=== PATIENT | female | born 1950 | race Caucasian/White ===

== ENCOUNTER → 2017-03-10 | Outpatient (CLI) | payer BC ==
[~2017-03-10] MED LIST: AMOX1TAB62 PO; ANAS1TAB PO; HYDR-3307 PO; ONDA8TAB9 PO; PROC10TA
== END | disposition home or self-care (01) ==
LOC: PETCFH 08:31
PROVIDERS: ATTEND Specialist
DX: M50.30 Other cervical disc degeneration, unspecified cervical region (principal); C50.919 Malignant neoplasm of unspecified site of unspecified female breast
CPT/HCPCS: 78306; A9503

== ENCOUNTER → 2017-03-10 | Outpatient (CLI) | payer BC | END | disposition home or self-care (01) | LOC: CFH 08:42 | PROVIDERS: ATTEND Specialist | DX: Z12.31 Encounter for screening mammogram for malignant neoplasm of breast (principal); C50.919 Malignant neoplasm of unspecified site of unspecified female breast; M41.84 Other forms of scoliosis, thoracic region | CPT/HCPCS: 71020; G0202 ==

== ENCOUNTER → 2018-03-12 | Outpatient (CLI) | payer BC ==
[~2018-03-12] MED LIST changes: -PROC10TA; +PROC10TA2
== END | disposition home or self-care (01) ==
LOC: CFH 10:11
PROVIDERS: ATTEND Family Medicine
DX: Z12.31 Encounter for screening mammogram for malignant neoplasm of breast (principal); Z85.3 Personal history of malignant neoplasm of breast
CPT/HCPCS: 77067

== ENCOUNTER → 2018-03-26 | Outpatient (CLI) | payer BC | END | disposition home or self-care (01) | LOC: CFH 12:57 → EDSTATUS 13:15 | PROVIDERS: ATTEND Specialist | DX: R94.5 Abnormal results of liver function studies (principal) | CPT/HCPCS: 76700 ==

== ENCOUNTER 2018-09-24 15:29 | Emergency (ER) | payer BC ==
[~2018-09-24] VITALS: Ht 144.8 cm; Wt 44.1 kg
[2018-09-24 15:50] VITALS: BP 114/84
== END 2018-09-24 17:14 | disposition home or self-care (01) ==
LOC: ED 17:08
DX: M25.571 Pain in right ankle and joints of right foot (principal); Z85.3 Personal history of malignant neoplasm of breast; X50.1XXA Overexertion from prolonged static or awkward postures, initial encounter; Y93.89 Activity, other specified; Y92.89 Other specified places as the place of occurrence of the external cause; Y99.8 Other external cause status
CPT/HCPCS: 99283

== ENCOUNTER 2018-10-15 16:45 | Emergency (ER) | payer BC ==
[~2018-10-15] VITALS: Ht 144.8 cm; Wt 41.2 kg
--- NOTE | 2018-10-15 17:04 | NUR ---
68 Y/O FEMALE PRESENTS TO ED WITH C/O DIZZINESS. PER PT "I'VE HAD N/V FOR ABOUT 8 MONTHS. I'VE BEEN DIZZY AND LIGHT HEADED FOR ABOUT 2-4 WEEKS. I'VE ALSO LOST MY APPETITE. I FEEL MOSTLY UNSTEADY. I FEEL LIKE MY EAR CANAL IS NARROWING.IT FEELS LIKE THERE IS FAN'S ON. LIKE A HUMMING SOUND." NO C/O D, TRAUMA, SYNCOPE, CP, SOB. NO C/O NUMBNESS AND TINGLING.
[2018-10-15 17:12] LABS: MEAN CORPUSCULAR HEMOGLOBIN 38.4 pg (27.0-34.8); MEAN CORPUSCULAR HGB CONC 32.8 g/dL (32.4-35.8); MEAN CORPUSCULAR VOLUME 117.2 fL (80-100); MEAN PLATELET VOLUME 6.1 fL (7.4-10.4); PLATELET COUNT 267 x10^3/uL (130-400); RED BLOOD COUNT 4.29 x10^6/uL (3.82-5.3); RED CELL DISTRIBUTION WIDTH 14.4 % (9.6-15.2)
[2018-10-15 17:21] LABS: ALANINE AMINOTRANSFERASE 54 U/L (12-78); ALBUMIN 3.9 g/dL (3.4-5.0); ANION GAP 12 mmol/L (5-15); CALCIUM 9.5 mg/dL (8.5-10.1); CHLORIDE 95 mmol/L (98-107)
[2018-10-15] MEDS ORDERED: MECLIZINE CHEWABLE 25 MG TAB ONE (17:24)
[2018-10-15] MEDS ORDERED: ONDANSETRON ODT 4 MG ONE (17:24)
[2018-10-15 17:26] LABS: ALKALINE PHOSPHATASE 84 U/L (45-117); BILIRUBIN,TOTAL 1.3 mg/dL (0.2-1.0); TOTAL PROTEIN 7.5 g/dL (6.4-8.2); TROPONIN I < 0.015 ng/mL (0.000-0.045)
[2018-10-15] MEDS ORDERED: ONDANSETRON ODT 4 MG PO ONE (17:30)
[2018-10-15] MEDS ORDERED: MECLIZINE CHEWABLE 25 MG TAB PO ONE (17:30)
--- NOTE | 2018-10-15 17:36 | NUR ---
PT BACK FROM IMAGING
[2018-10-15 17:40] LABS: BASOPHILS # (AUTO) 0.05 x10^3/uL (0-0.1); BASOPHILS % (AUTO) 1 % (0-1); EOSINOPHILS # (AUTO) 0.07 x10^3/uL (0-0.4); EOSINOPHILS % (AUTO) 1 % (1-7); LYMPHOCYTES # (AUTO) 1.84 x10^3/uL (1-3.4); LYMPHOCYTES % (AUTO) 18 % (22-44); MD SCAN; MONOCYTES # (AUTO) 0.72 x10^3/uL (0.2-0.8); MONOCYTES % (AUTO) 7 % (2-9); NEUTROPHILS # (AUTO) 7.78 x10^3/uL (1.8-6.8); NEUTROPHILS % (AUTO) 74 % (42-75)
[2018-10-15 18:30] VITALS: BP 120/93
--- NOTE | 2018-10-15 18:31 | NUR ---
PATIENT AMBULATED TO RESTROOM AND REPORTED THAT SHE HAS IMPROVED DIZZINESS SYMPTOMS . [facility] COLLECTED AND WALKED TO LAB
[2018-10-15 18:35] LABS: CULTURE INDICATED? YES; MICROSCOPIC INDICATED
--- NOTE | 2018-10-15 18:58 | NUR ---
MD IN WITH PATIENT FOR PLAN OF CARE
== END 2018-10-15 19:28 | disposition home or self-care (01) ==
LOC: ED 19:10
DX: H81.399 Other peripheral vertigo, unspecified ear (principal); H81.10 Benign paroxysmal vertigo, unspecified ear; R11.2 Nausea with vomiting, unspecified; Z85.3 Personal history of malignant neoplasm of breast
CPT/HCPCS: 36415; 70450; 71045; 80053; 81001; 84484; 85025; 87086; 93005; 99284; Q0162

== ENCOUNTER 2018-10-16 11:17 | Emergency (ER) | payer BC ==
[~2018-10-16] VITALS: Ht 144.8 cm; Wt 40.9 kg
[2018-10-16] MEDS ORDERED: SODIUM CHLORIDE FLUSH 10ML SYR IVF ONE (12:00)
[2018-10-16 12:15] LABS: ALANINE AMINOTRANSFERASE 47 U/L (12-78); ALBUMIN 3.4 g/dL (3.4-5.0); ANION GAP 15 mmol/L (5-15); CALCIUM 9.3 mg/dL (8.5-10.1); CHLORIDE 98 mmol/L (98-107); CREATININE 0.82 mg/dL (0.55-1.02)
[2018-10-16 12:17] LABS: ALKALINE PHOSPHATASE 71 U/L (45-117); BILIRUBIN,TOTAL 1.5 mg/dL (0.2-1.0); TOTAL PROTEIN 6.3 g/dL (6.4-8.2)
--- NOTE | 2018-10-16 12:29 | NUR ---
Pt transported on rmidnight to imaging.
[2018-10-16 13:43] LABS: MEAN CORPUSCULAR HEMOGLOBIN 38.7 pg (27.0-34.8); MEAN CORPUSCULAR HGB CONC 33.1 g/dL (32.4-35.8); MEAN CORPUSCULAR VOLUME 116.8 fL (80-100); MEAN PLATELET VOLUME 6.6 fL (7.4-10.4); PLATELET COUNT 167 x10^3/uL (130-400); RED BLOOD COUNT 3.83 x10^6/uL (3.82-5.3); RED CELL DISTRIBUTION WIDTH 14.5 % (9.6-15.2)
[2018-10-16 13:44] LABS: BASOPHILS # (AUTO) 0.02 x10^3/uL (0-0.1); BASOPHILS % (AUTO) 0 % (0-1); EOSINOPHILS # (AUTO) 0.04 x10^3/uL (0-0.4); EOSINOPHILS % (AUTO) 0 % (1-7); LYMPHOCYTES # (AUTO) 1.12 x10^3/uL (1-3.4); LYMPHOCYTES % (AUTO) 14 % (22-44); MD SCAN; MONOCYTES # (AUTO) 0.79 x10^3/uL (0.2-0.8); MONOCYTES % (AUTO) 10 % (2-9); NEUTROPHILS # (AUTO) 6.26 x10^3/uL (1.8-6.8); NEUTROPHILS % (AUTO) 76 % (42-75)
[2018-10-16 14:08] VITALS: BP 124/86
--- NOTE | 2018-10-16 14:25 | NUR ---
Patient given discharge instructions and they have confirmed that they understand the instructions. Patient ambulatory with steady gait. Pt left with d/c paperwork and all personal belongings.
== END 2018-10-16 14:27 | disposition home or self-care (01) ==
LOC: ED 14:11
DX: R55 Syncope and collapse (principal)
CPT/HCPCS: 36415; 70551; 80053; 85025; 93005; 99284

== ENCOUNTER 2018-10-25 15:02 | Inpatient (IN) | payer BC ==
[~2018-10-25] VITALS: Ht 144.8 cm; Wt 42.9 kg
--- NOTE | 2018-10-25 15:14 | NUR ---
PT WITHOUT PHYSICAL COMPLAINT. PT ASKING FOR NO VISITORS AT THIS TIME. NOTE PLACED REGARDING SUCH IN CHART. WARM BLANKET PROVIDED, CALL LIGHT WITHIN REACH. VSS, PT A/OX3.
--- NOTE | 2018-10-25 15:38 | NUR ---
URINE COLLECTED, LABS DRAWN/SENT TO LAB. PT AMBULATORY WITH SBA TO BR. SLIGHTLY UNSTEADY GAIT, PT DENIES DIZZINESS AT THIS TIME. R FOOT BRUISING, SLIGHT SWELLING.
[2018-10-25 15:55] LABS: MEAN CORPUSCULAR HGB CONC 32.2 g/dL (32.4-35.8); MEAN CORPUSCULAR VOLUME 114.9 fL (80-100); MEAN PLATELET VOLUME 6.4 fL (7.4-10.4); PLATELET COUNT 283 x10^3/uL (130-400); RED BLOOD COUNT 3.93 x10^6/uL (3.82-5.3); RED CELL DISTRIBUTION WIDTH 14.6 % (9.6-15.2)
--- NOTE | 2018-10-25 16:00 | NUR ---
PT STATING OKAY FOR DTR TO COME BACK TO ROOM.
[2018-10-25 16:04] LABS: MICROSCOPIC INDICATED
[2018-10-25 16:05] LABS: ALBUMIN 3.6 g/dL (3.4-5.0); ANION GAP 10 mmol/L (5-15); CALCIUM 8.9 mg/dL (8.5-10.1); CHLORIDE 102 mmol/L (98-107)
[2018-10-25 16:05] LABS: CULTURE INDICATED? YES
[2018-10-25 16:09] LABS: ALANINE AMINOTRANSFERASE 33 U/L (12-78); ALKALINE PHOSPHATASE 82 U/L (45-117); BASOPHILS # (AUTO) 0.04 x10^3/uL (0-0.1); BASOPHILS % (AUTO) 0 % (0-1); BILIRUBIN,TOTAL 1.3 mg/dL (0.2-1.0); CREATININE 0.69 mg/dL (0.55-1.02); EOSINOPHILS # (AUTO) 0.02 x10^3/uL (0-0.4); EOSINOPHILS % (AUTO) 0 % (1-7); LYMPHOCYTES % (AUTO) 20 % (22-44); MD SCAN; MONOCYTES # (AUTO) 0.79 x10^3/uL (0.2-0.8); MONOCYTES % (AUTO) 8 % (2-9); NEUTROPHILS # (AUTO) 7.01 x10^3/uL (1.8-6.8); NEUTROPHILS % (AUTO) 72 % (42-75); TOTAL PROTEIN 6.8 g/dL (6.4-8.2)
[2018-10-25] MEDS ORDERED: CEFTRIAXONE PMX 1GM/50ML 50 ML IV ONE (16:30)
[2018-10-25] MEDS ORDERED: SODIUM CHLORIDE FLUSH 10ML SYR IVF ONE (16:30)
[2018-10-25] MEDS ORDERED: CEFTRIAXONE PMX 1GM/50ML 50 ML ONE (16:42)
--- NOTE | 2018-10-25 17:00 | NUR ---
[facility] IN TO SEE PT.
[2018-10-25] MEDS ORDERED: LORazepam 0.5MG TABLET PO PRN (17:30)
[2018-10-25] MEDS ORDERED: INSTRUCTION SEE COMMENTS XX PRN (17:30)
[2018-10-25] MEDS ORDERED: LORazepam 2 MG/ML, 1ML IV PRN ×3 (17:30)
[2018-10-25] MEDS ORDERED: PHARMACY INSTRUCTION MC PRN (17:30)
[2018-10-25] MEDS ORDERED: QUETIAPINE 25MG TABLET PO PRN (17:30)
[2018-10-25] MEDS ORDERED: THIAMINE 200 MG in DEXTROSE 5% 50 ML IVPB ONE (17:30)
[2018-10-25] MEDS ORDERED: LORazepam 1MG TABLET PO PRN ×2 (17:30)
[2018-10-25] MEDS ORDERED: ACETAMINOPHEN 325 MG TABLET PO PRN (17:30)
--- NOTE | 2018-10-25 17:40 | NUR ---
PT TO CT.
--- NOTE | 2018-10-25 17:48 | NUR ---
ULTRASOUND DELAY-PT IN CT.
[2018-10-25 17:52] LABS: PROTHROMBIN TIME 10.5 Seconds (9.6-11.5)
[2018-10-25] MEDS ORDERED: OMNIPAQUE 350 MG/ML, 100ML BOTTLE ONE (17:55)
--- NOTE | 2018-10-25 18:18 | NUR ---
REPORT TO FLIP RN, PT READY FOR TRANSPORT.
[2018-10-25 18:22] LABS: THYROID STIMULATING HORMONE 3.47 mIU/L (0.358-3.740)
[2018-10-25 19:30] VITALS: BP 119/82
[2018-10-25 19:35] VITALS: BP 105/76
[2018-10-25 19:40] VITALS: BP 92/67
[2018-10-25] MEDS ORDERED: THIAMINE 100MG TABLET PO SCH ×3 (19:58→20:01)
[2018-10-25 20:13] LABS: AMPHETAMINE SCREEN, URINE Negative (Negative); BARBITURATE SCREEN, URINE Negative (Negative); BENZODIAZEPINE SCREEN, URINE Negative (Negative); CANNABINOID SCREEN, URINE Negative (Negative); COCAINE SCREEN, URINE Negative (Negative); METHADONE SCREEN, URINE Negative (Negative); OPIATE SCREEN, URINE Negative (Negative)
[2018-10-25] MEDS ORDERED: THIAMINE 100MG TABLET PO ONE (20:30)
[2018-10-25] MEDS: MELATONIN 3 MG TABLET PO SCH (21:34)
[2018-10-25] MEDS ORDERED: MAGNESIUM SULFATE PMX 4GM/100M 100 ML IV ONE (22:00)
[2018-10-25] MEDS ORDERED: POTASSIUM CHLORIDE 20 MEQ TAB.ER.PRT PO ONE (22:00)
[2018-10-26 02:34] VITALS: BP 113/75
[2018-10-26 06:53] LABS: MEAN CORPUSCULAR HEMOGLOBIN 37.1 pg (27.0-34.8); MEAN CORPUSCULAR HGB CONC 32.3 g/dL (32.4-35.8); MEAN CORPUSCULAR VOLUME 114.7 fL (80-100); MEAN PLATELET VOLUME 6.7 fL (7.4-10.4); PLATELET COUNT 254 x10^3/uL (130-400); RED BLOOD COUNT 3.56 x10^6/uL (3.82-5.3); RED CELL DISTRIBUTION WIDTH 14.6 % (9.6-15.2)
[2018-10-26 07:04] LABS: ALBUMIN 3.1 g/dL (3.4-5.0); ANION GAP 6 mmol/L (5-15); CALCIUM 8.6 mg/dL (8.5-10.1); CHLORIDE 104 mmol/L (98-107)
[2018-10-26 07:09] LABS: ALANINE AMINOTRANSFERASE 31 U/L (12-78); ALKALINE PHOSPHATASE 75 U/L (45-117); BILIRUBIN,TOTAL 0.7 mg/dL (0.2-1.0); CREATININE 0.58 mg/dL (0.55-1.02); TOTAL PROTEIN 6.1 g/dL (6.4-8.2)
[2018-10-26 07:24] LABS: MD MORPH REVIEW ONLY
[2018-10-26 07:25] LABS: BASOPHILS # (AUTO) 0.01 x10^3/uL (0-0.1); BASOPHILS % (AUTO) 0 % (0-1); EOSINOPHILS # (AUTO) 0.03 x10^3/uL (0-0.4); EOSINOPHILS % (AUTO) 0 % (1-7); LYMPHOCYTES # (AUTO) 1.12 x10^3/uL (1-3.4); LYMPHOCYTES % (AUTO) 11 % (22-44); MONOCYTES # (AUTO) 0.81 x10^3/uL (0.2-0.8); MONOCYTES % (AUTO) 8 % (2-9); NEUTROPHILS # (AUTO) 8.15 x10^3/uL (1.8-6.8); NEUTROPHILS % (AUTO) 81 % (42-75); POLYCHROMASIA 1+
[2018-10-26 07:26] LABS: <PLATELET ESTIMATE> ADEQUATE; <PLT MORPHOLOGY> NORMAL PLT MORPH
[2018-10-26 07:27] LABS: ANISOCYTOSIS 1+
[2018-10-26] MEDS ORDERED: ENOXAPARIN 40 MG/0.4 ML SQ SCH (08:00)
[2018-10-26 08:10] VITALS: BP 101/78
[2018-10-26] MEDS: MULTIVITAMINS/MINERALS TABLET PO SCH (09:55)
[2018-10-26] MEDS: THIAMINE 100MG TABLET PO SCH (09:55)
[2018-10-26] MEDS: DOCUSATE 100 MG CAPSULE PO SCH (09:55)
[2018-10-26] MEDS: FOLIC ACID 1 MG TABLET PO SCH (09:55)
[2018-10-26 13:30] VITALS: BP_SYST 109; BP_SYST 131; BP_DIAS 73; BP_DIAS 76; BP_DIAS 77
[2018-10-26] MEDS: CEFTRIAXONE PMX 1GM/50ML 50 ML IV SCH (17:13)
[2018-10-26 21:15] VITALS: BP 131/80
[2018-10-26] MEDS: MELATONIN 3 MG TABLET PO SCH (22:00)
[2018-10-27 01:46] VITALS: BP 119/69
[2018-10-27 05:47] LABS: MEAN CORPUSCULAR HEMOGLOBIN 37.4 pg (27.0-34.8); MEAN CORPUSCULAR HGB CONC 32.8 g/dL (32.4-35.8); MEAN CORPUSCULAR VOLUME 114.1 fL (80-100); MEAN PLATELET VOLUME 6.2 fL (7.4-10.4); PLATELET COUNT 234 x10^3/uL (130-400); RED BLOOD COUNT 3.43 x10^6/uL (3.82-5.3); RED CELL DISTRIBUTION WIDTH 14.7 % (9.6-15.2)
[2018-10-27 05:55] LABS: ALANINE AMINOTRANSFERASE 28 U/L (12-78); ALBUMIN 3.1 g/dL (3.4-5.0); ANION GAP 6 mmol/L (5-15); CALCIUM 9.2 mg/dL (8.5-10.1); CHLORIDE 108 mmol/L (98-107); CREATININE 0.54 mg/dL (0.55-1.02)
[2018-10-27 05:57] LABS: ALKALINE PHOSPHATASE 88 U/L (45-117); BILIRUBIN,TOTAL 0.6 mg/dL (0.2-1.0)
[2018-10-27 06:34] LABS: BASOPHILS # (AUTO) 0.02 x10^3/uL (0-0.1); BASOPHILS % (AUTO) 0 % (0-1); EOSINOPHILS # (AUTO) 0.06 x10^3/uL (0-0.4); EOSINOPHILS % (AUTO) 1 % (1-7); LYMPHOCYTES # (AUTO) 1.33 x10^3/uL (1-3.4); LYMPHOCYTES % (AUTO) 17 % (22-44); MD SCAN; MONOCYTES # (AUTO) 0.72 x10^3/uL (0.2-0.8); MONOCYTES % (AUTO) 9 % (2-9); NEUTROPHILS # (AUTO) 5.73 x10^3/uL (1.8-6.8); NEUTROPHILS % (AUTO) 73 % (42-75)
[2018-10-27] MEDS: DOCUSATE 100 MG CAPSULE PO SCH (08:00)
[2018-10-27 08:30] VITALS: BP 104/73
[2018-10-27] MEDS ORDERED: THIAMINE 100 MG in DEXTROSE 5% 50 ML IVPB SCH (09:00)
[2018-10-27 13:49] LABS: OCCULT BLOOD POSITIVE (NEGATIVE)
[2018-10-27 15:15] VITALS: BP 98/61
[2018-10-27] MEDS: MULTIVITAMINS/MINERALS TABLET PO SCH (17:27)
[2018-10-27] MEDS: FOLIC ACID 1 MG TABLET PO SCH (17:28)
[2018-10-27] MEDS: THIAMINE 100MG TABLET PO SCH (17:28)
[2018-10-27] MEDS: CEFTRIAXONE PMX 1GM/50ML 50 ML IV SCH (17:30)
[2018-10-27 19:46] VITALS: BP 111/71
[2018-10-27] MEDS: MELATONIN 3 MG TABLET PO SCH (21:03)
[2018-10-28 00:45] VITALS: BP 117/77
[2018-10-28] MEDS: THIAMINE 100MG TABLET PO SCH (09:07)
[2018-10-28] MEDS: FOLIC ACID 1 MG TABLET PO SCH (09:08)
[2018-10-28] MEDS: MULTIVITAMINS/MINERALS TABLET PO SCH (09:08)
[2018-10-28] MEDS: DOCUSATE 100 MG CAPSULE PO SCH (09:08)
[2018-10-28 09:09] VITALS: BP 110/68
[2018-10-28] MEDS: OMEPRAZOLE 20 MG CAPSULE.DR PO SCH ×2 (12:48→20:54)
[2018-10-28] MEDS: SUCRALFATE 1 GM/10 ML UDC PO SCH ×3 (12:48→20:54)
[2018-10-28] MEDS ORDERED: OMEP-110 PO (12:55)
[2018-10-28] MEDS ORDERED: MAGN400T26 PO (12:55)
[2018-10-28] MEDS ORDERED: MULT-484 PO (12:55)
[2018-10-28] MEDS ORDERED: QUET25TA7 PO (12:55)
[2018-10-28] MEDS ORDERED: SUCR1ORA5 PO (12:55)
[2018-10-28] MEDS ORDERED: FOLI-17 PO (12:55)
[2018-10-28] MEDS ORDERED: ACET325T14 PO (12:55)
[2018-10-28] MEDS ORDERED: THIA100T67 PO (12:55)
[2018-10-28] MEDS ORDERED: MELA3TAB2 PO (12:55)
[2018-10-28 13:27] VITALS: BP 97/68
[2018-10-28] MEDS ORDERED: ASPI-515 PO (14:26)
[2018-10-28] MEDS: CEFTRIAXONE PMX 1GM/50ML 50 ML IV SCH (17:28)
[2018-10-28 20:43] VITALS: BP 108/71
[2018-10-28] MEDS: MELATONIN 3 MG TABLET PO SCH (20:54)
[2018-10-29 00:46] VITALS: BP 118/82
[2018-10-29 07:05] VITALS: BP 111/73
[2018-10-29] MEDS: MULTIVITAMINS/MINERALS TABLET PO SCH (08:44)
[2018-10-29] MEDS: OMEPRAZOLE 20 MG CAPSULE.DR PO SCH ×2 (08:44→20:05)
[2018-10-29] MEDS: SUCRALFATE 1 GM/10 ML UDC PO SCH ×4 (08:44→20:05)
[2018-10-29] MEDS: DOCUSATE 100 MG CAPSULE PO SCH (08:44)
[2018-10-29] MEDS: FOLIC ACID 1 MG TABLET PO SCH (08:44)
[2018-10-29] MEDS: THIAMINE 100MG TABLET PO SCH (08:44)
[2018-10-29 12:08] VITALS: BP 105/70
[2018-10-29] MEDS: CEFTRIAXONE PMX 1GM/50ML 50 ML IV SCH (16:55)
[2018-10-29] MEDS: MELATONIN 3 MG TABLET PO SCH (20:05)
[2018-10-29 20:22] VITALS: BP 112/79
[2018-10-30 01:23] VITALS: BP 110/77
[2018-10-30 06:57] VITALS: BP 110/72
[2018-10-30] MEDS: THIAMINE 100MG TABLET PO SCH (09:06)
[2018-10-30] MEDS: FOLIC ACID 1 MG TABLET PO SCH (09:06)
[2018-10-30] MEDS: SUCRALFATE 1 GM/10 ML UDC PO SCH ×4 (09:06→21:26)
[2018-10-30] MEDS: MULTIVITAMINS/MINERALS TABLET PO SCH (09:06)
[2018-10-30] MEDS: OMEPRAZOLE 20 MG CAPSULE.DR PO SCH ×2 (09:06→21:27)
[2018-10-30] MEDS: DOCUSATE 100 MG CAPSULE PO SCH (09:06)
[2018-10-30 12:15] VITALS: BP 104/70
[2018-10-30] MEDS: CEFTRIAXONE PMX 1GM/50ML 50 ML IV SCH (17:00)
[2018-10-30 18:55] VITALS: BP 121/81
[2018-10-30] MEDS: MELATONIN 3 MG TABLET PO SCH (21:27)
[2018-10-31 01:26] VITALS: BP 116/74
[2018-10-31 06:51] VITALS: BP 120/78
[2018-10-31] MEDS: SUCRALFATE 1 GM/10 ML UDC PO SCH ×2 (09:31→11:00)
[2018-10-31] MEDS: MULTIVITAMINS/MINERALS TABLET PO SCH (09:32)
[2018-10-31] MEDS: OMEPRAZOLE 20 MG CAPSULE.DR PO SCH (09:32)
[2018-10-31] MEDS: THIAMINE 100MG TABLET PO SCH (09:32)
[2018-10-31] MEDS: DOCUSATE 100 MG CAPSULE PO SCH (09:32)
[2018-10-31] MEDS: FOLIC ACID 1 MG TABLET PO SCH (09:32)
[2018-10-31 13:14] VITALS: BP 126/75
[2018-10-31 13:47] VITALS: BP 94/61
== END 2018-10-31 17:09 | DRG 73 ==
LOC: ED 17:11 → EDIP 17:19 → 4EST 18:32
PROVIDERS: ADMIT Internal Medicine; ATTEND Internal Medicine
DX: G90.9 Disorder of the autonomic nervous system, unspecified (principal); G92 Toxic encephalopathy; N39.0 Urinary tract infection, site not specified; E51.2 Wernicke's encephalopathy; I10 Essential (primary) hypertension; R62.7 Adult failure to thrive; I73.9 Peripheral vascular disease, unspecified; K76.0 Fatty (change of) liver, not elsewhere classified; S93.401A Sprain of unspecified ligament of right ankle, initial encounter; Z85.3 Personal history of malignant neoplasm of breast; W18.39XA Other fall on same level, initial encounter; Y93.89 Activity, other specified; Y92.89 Other specified places as the place of occurrence of the external cause; Y99.8 Other external cause status
CPT/HCPCS: 36415; 70450; 74177; 80053; 80307; 81001; 82140; 82272; 82306; 82330; 82607; 83690; 83735; 84100; 84425; 84443; 85025; 85610; 87086; 93005; 93306; 93880; 95819; 96365; 99285; G0378; J0696; Q9967; J3475